=== PATIENT | male | born 1985 | race Two or more races ===

== ENCOUNTER 2018-12-30 18:24 | Inpatient (IN) | payer BC ==
[~2018-12-30] VITALS: Ht 172.7 cm; Wt 126.6 kg
[2018-12-30 19:41] LABS: BASOPHIL % 0.1 % (0-2); PLATELET COUNT 323 x10^3mcL (130-400); RED CELL DISTRIBUTION WIDTH 12.7 % (11.5-14.5)
[2018-12-30 19:54] LABS: CALCIUM 9.3 mg/dL (8.5-10.1); CARBON DIOXIDE 28.7 mmol/L (21-32); CHLORIDE SERUM 98 mmol/L (98-107); CREATININE SERUM 1.3 mg/dL (0.7-1.3); GFR1 > 60 mL/min; GLUCOSE SERUM 139 mg/dL (74-106); POTASSIUM SERUM 3.4 mmol/L (3.5-5.1); SODIUM SERUM 140 mmol/L (136-145)
[2018-12-30 19:59] LABS: ALBUMIN 4.5 g/dL (3.4-5.0); ALKALINE PHOSPHATASE 71 U/L (46-116); ALT/SGPT 37 U/L (16-63); AST/SGOT 17 U/L (15-37); BILIRUBIN TOTAL 0.8 mg/dL (0.20-1.00); LIPASE 88 IU/L (73-393)
[2018-12-30 20:01] LABS: TOTAL PROTEIN, SERUM 8.5 g/dL (6.4-8.2)
[2018-12-30 20:58] LABS: UA SPECIFIC GRAVITY 1.025 (1.005-1.035); microscopic required? YES; urine erythrocyte 3+ (NEGATIVE)
[2018-12-30 22:54] VITALS: BP 115/74
[2018-12-30 23:00] VITALS: Ht 172.7 cm; Wt 126.6 kg
[2018-12-31] VITALS (7 sets, daily range): BP systolic 94–128; BP diastolic 43–77
[2018-12-31 04:21] LABS: AMPHETAMINE QUAL UR NONE DETECTED (See below)
[2018-12-31 06:50] LABS: BASOPHIL % 0.2 % (0-2); PLATELET COUNT 263 x10^3mcL (130-400); RED CELL DISTRIBUTION WIDTH 13.1 % (11.5-14.5)
[2018-12-31 06:51] LABS: CALCIUM 8.2 mg/dL (8.5-10.1); CHLORIDE SERUM 105 mmol/L (98-107); CREATININE SERUM 1.2 mg/dL (0.7-1.3); GFR1 > 60 mL/min; GLUCOSE SERUM 130 mg/dL (74-106); MAGNESIUM 1.6 mg/dL (1.8-2.4); PHOSPHOROUS 2.5 mg/dL (2.5-4.9); POTASSIUM SERUM 3.3 mmol/L (3.5-5.1); SODIUM SERUM 140 mmol/L (136-145)
[2019-01-01 06:12] VITALS: BP 103/53
[2019-01-01 06:33] LABS: CALCIUM 8.2 mg/dL (8.5-10.1); CARBON DIOXIDE 28.8 mmol/L (21-32); CHLORIDE SERUM 105 mmol/L (98-107); CREATININE SERUM 1.2 mg/dL (0.7-1.3); GFR1 > 60 mL/min; GLUCOSE SERUM 114 mg/dL (74-106); MAGNESIUM 1.7 mg/dL (1.8-2.4); PHOSPHOROUS 2.5 mg/dL (2.5-4.9); POTASSIUM SERUM 3.5 mmol/L (3.5-5.1); SODIUM SERUM 140 mmol/L (136-145)
[2019-01-01 06:52] LABS: BASOPHIL % 0.2 % (0-2); PLATELET COUNT 247 x10^3mcL (130-400); RED CELL DISTRIBUTION WIDTH 13.2 % (11.5-14.5)
[2019-01-01 09:00] VITALS: BP 112/71
[2019-01-01] MEDS ORDERED: TOR10 PO (09:59)
[2019-01-01 10:27] VITALS: BP 112/71
== END 2019-01-01 11:15 | disposition home or self-care (01) | DRG 854 ==
LOC: ED 18:24 → MU 21:13 → DU 21:13
PROVIDERS: Emergency Medicine; Surgery; ADMIT Internal Medicine
PROC: 0DTJ4ZZ Resection of Appendix, Percutaneous Endoscopic Approach (ICD-10-PCS; principal; 2018-12-31 07:15)
DX: A41.9 Sepsis, unspecified organism (principal); R73.9 Hyperglycemia, unspecified; K35.30 Acute appendicitis with localized peritonitis, without perforation or gangrene; E87.6 Hypokalemia
CPT/HCPCS: G0378; J0330; J1170; J1885; J2405; J2543; J2704; J2710; J3010; J3490; J7030; J7120; Q0092